=== PATIENT | male | born 1980 | race Caucasian/White ===

== ENCOUNTER → 2016-06-05 | Outpatient (CLI) | payer BC ==
[2016-06-05 15:17] LABS: HEMATOCRIT 50.1 % (42-52); MEAN CELL VOLUME 82.4 fL (80-100); MEAN CORPUSCULAR HEMOGLOBIN 28.9 pg (25-34); MEAN CORPUSCULAR HGB CONC 35.1 g/dl (32-36); PLATELET COUNT 188 K/uL (130-400); RED BLOOD COUNT 6.08 M/uL (4.7-6.1); WHITE BLOOD COUNT 9.27 K/uL (4.8-10.8)
[2016-06-05 15:33] LABS: PROSTATE SPECIFIC ANTIGEN 0.52 ng/ml (0.000-4.000)
== END | disposition home or self-care (01) ==
LOC: C.LAB1850 12:53
PROVIDERS: ATTEND Internal Medicine Endocrinology, Diabetes & Metabolism
DX: E29.1 Testicular hypofunction (principal)

== ENCOUNTER → 2016-10-16 | Outpatient (CLI) | payer BC ==
--- NOTE | 2016-10-16 14:12 | DIAGNOSTIC IMAGING REPORT ---
MRI OF THE BRAIN COMBO; MRI OF THE PITUITARY GLAND CLINICAL HISTORY: Chronic headache. Hypogonadism. COMPARISON STUDY: No priors. TECHNIQUE: MRI of the brain was performed utilizing various T1 and T2-weighted sequences in the axial, sagittal, and coronal planes. Contrast-enhanced sequences were acquired following the administration of 9.5 cc of Gadavist. Additional high-resolution imaging of the pituitary gland was performed both pre and postcontrast. Dynamic postcontrast images were obtained in the coronal plane. FINDINGS: Brain parenchyma: There is a single focus of T2 signal abnormality within the right frontal white matter. This is of doubtful significance as an isolated finding. The brain parenchyma is otherwise normal in appearance. There is no hemorrhage or mass effect. There is no restricted diffusion to suggest acute ischemia. No enhancing mass lesion is identified on the postcontrast images. Barnett-white matter differentiation is preserved. No extra-axial fluid collection is seen. The cerebellar tonsils are normal in configuration. Ventricles, sulci, and cisterns: Normal in configuration. Pituitary and sella: The pituitary gland is normal in appearance. No hypovascular nodule is suggested on the dynamic postcontrast imaging. The infundibulum is midline. Intracranial vasculature: Normal flow voids are maintained at the skull base. Orbits: The bony orbits are grossly intact. Orbital contents are normal in appearance. Sinuses and mastoids: There is a small left mastoid effusion. The right mastoid air cells are clear. Trace mucosal thickening is seen within the maxillary antra and ethmoid sinuses. The remaining paranasal sinuses are clear. Calvarium: Unremarkable. Cervical cord: Partially visualized cervical spinal cord is normal in morphology and signal intensity. IMPRESSION: 1. No acute intracranial abnormality. 2. The pituitary gland is normal in appearance. 3. Left mastoid effusion. Electronically signed by: Gonzalo Back M.D. 10/16/2016 2:10 PM Dictated Date/Time: 10/16/2016 2:03 PM
== END | disposition home or self-care (01) ==
LOC: C.MRI 12:23
PROVIDERS: ATTEND Internal Medicine Endocrinology, Diabetes & Metabolism
DX: E29.1 Testicular hypofunction (principal)